=== PATIENT | female | born 1985 | race Caucasian/White ===

== ENCOUNTER 2019-11-18 05:55 | Inpatient (IN) ==
[2019-11-18] MEDS ORDERED: MEPERIDINE 25 MG/1 ML VIAL IV PRN (06:03)
[2019-11-18] MEDS ORDERED: ONDANSETRON 4 MG/2 ML VIAL IV PRN (06:03)
[2019-11-18] MEDS ORDERED: LACTATED RINGERS 250 ML IV ONE (06:03)
[2019-11-18] MEDS ORDERED: MEPERIDINE 50 MG/1 ML VIAL IV PRN (06:03)
[2019-11-18] MEDS ORDERED: LACTATED RINGERS 1,000 ML IV SCH (06:30)
[2019-11-18 06:31] LABS: Basophils % 0.4 % (0.0-0.8); Eosinophils # 0.1 10*3/uL (0.0-0.87); Eosinophils % 0.8 % (0.00-10.9); Hematocrit 33.3 VOL% (35.7-47.0); Hemoglobin 11.4 GM/DL (12.0-16.0); Immature Granulocytes % 1.1 %; Immature Granulocytes Absolute 0.11 #; Lymphocytes # 2.1 10*3/uL (1.4-4.0); Lymphocytes % 20.8 % (21.3-54.2); Mean Corpuscular HGB Conc 34.2 GM/DL (32-36); Mean Platelet Volume 9.7 FL (9.6-12.0); Monocytes % 8.7 % (1.7-12.7); Neutrophils % 68.2 % (38.7-73.9); Platelet Count 197 T/CUMM (130-400); Red Blood Count 3.62 MC/CUMM (3.8-5.5); Red Cell Distribution Width 14.5 % (9.3-17.3)
[2019-11-18 06:57] LABS: Albumin 2.9 G/DL (3.4-5.0); Bilirubin,Total 1.6 MG/DL (0.2-1.0); Osmolality,Calculated 269.8 MOS/KG (273-304); Total Protein 6.8 G/DL (6.4-8.3)
[2019-11-18] MEDS ORDERED: hydrOXYzine HCL 25 MG/1 ML VIAL IM PRN (07:28)
[2019-11-18] MEDS ORDERED: CITRIC ACID/SODIUM CITRATE 30 ML UDCUP PO ONE (07:28)
[2019-11-18] MEDS ORDERED: ONDANSETRON 4 MG/2 ML VIAL IV ONE (07:28)
[2019-11-18] MEDS ORDERED: LACTATED RINGERS 1,000 ML IV ONE (07:28)
[2019-11-18] MEDS ORDERED: ePHEDrine 50 MG/ML VIAL IV PRN (07:28)
[2019-11-18] MEDS ORDERED: NALOXONE 0.4 MG/ML VIAL IV PRN (07:28)
[2019-11-18] MEDS ORDERED: PROMETHAZINE 25 MG/1 ML VIAL IM ONE (07:28)
[2019-11-18] MEDS ORDERED: diphenhydrAMINE 50 MG/1 ML VIAL IV PRN ×2 (07:28)
[2019-11-18] MEDS ORDERED: FAMOTIDINE 20 MG/2 ML VIAL IV ONE (07:28)
[2019-11-18] MEDS: OXYTOCIN/LR 20 UNIT/1,000 ML BAG IV SCH ×2 (07:33→17:00)
[2019-11-18] MEDS: fentaNYL 2 MCG/ROPIV 0.2% EPID 100 ML EPIDURAL SCH ×3 (08:04→16:56)
[2019-11-18 12:39] LABS: Bacteria,Urine Occasional /HPF (Few); Bilirubin,Urine Negative (Negative); Blood, Urine Negative (Negative); Glucose,Urine (UA) Negative (Negative); Ketones,Urine Negative (Negative); Mucus,Urine Occasional /LPF (Occasional); Nitrite,Urine Negative (Negative); Protein,Urine Negative; Squamous Epithelial Cell,Urine Occasional /HPF (0-10); Urine Appearance CLEAR (Clear); Urine Color Yellow (Yellow); Urine Specific Gravity 1.009 (1.001-1.035); Urine Urobilinogen < 2.0 EU/DL (0.2-1.0); WBC,Urine <1 /HPF (0-6)
[2019-11-18] MEDS ORDERED: miSOPROStoL 200 MCG TABLET ONE (13:33)
[2019-11-18] MEDS ORDERED: LIDOCAINE 1% 50 ML VIAL ONE (13:33)
[2019-11-18] MEDS ORDERED: METHYLERGONOVINE 0.2 MG/1 ML AMP ONE (13:34)
[2019-11-18 14:55] LABS: Cord Arterial Blood HCO3 23.8 MMOL/L
[2019-11-18 14:58] LABS: Cord Venous Blood HCO3 22.8 MMOL/L; Cord Venous Blood PCO2 41.4 MMHG; Cord Venous Blood PO2 26.2 MMHG
[2019-11-18] MEDS: IBUPROFEN 800 MG TABLET PO PRN ×2 (17:01→23:16)
[2019-11-18] MEDS: DOCUSATE SODIUM 100 MG CAPSULE PO SCH (20:25)
[2019-11-18] MEDS: WITCH HAZEL PADS 100/JAR TOP PRN (20:25)
[2019-11-18] MEDS: HYDROCORTISONE 2.5% RECTAL CREAM 30 GM TUBE TOP PRN (20:25)
[2019-11-19] MEDS: oxyCODONE/ACETAMINOPHEN 5-325 MG TABLET PO PRN ×2 (03:46→22:50)
[2019-11-19 05:56] LABS: Basophils % 0.3 % (0.0-0.8); Eosinophils # 0.1 10*3/uL (0.0-0.87); Eosinophils % 0.6 % (0.00-10.9); Hematocrit 26.1 VOL% (35.7-47.0); Hemoglobin 8.8 GM/DL (12.0-16.0); Immature Granulocytes % 0.8 %; Immature Granulocytes Absolute 0.08 #; Lymphocytes # 1.7 10*3/uL (1.4-4.0); Lymphocytes % 15.8 % (21.3-54.2); Mean Corpuscular HGB Conc 33.7 GM/DL (32-36); Mean Corpuscular Volume 93.9 FL (87-102); Mean Platelet Volume 10.3 FL (9.6-12.0); Monocytes % 7.7 % (1.7-12.7); Neutrophils % 74.8 % (38.7-73.9); Platelet Count 158 T/CUMM (130-400); Red Blood Count 2.78 MC/CUMM (3.8-5.5); Red Cell Distribution Width 14.6 % (9.3-17.3); White Blood Count 10.5 T/CUMM (4-12)
[2019-11-19] MEDS: FERROUS SULFATE 325 MG TABLET PO SCH ×2 (07:48→21:06)
[2019-11-19] MEDS: DOCUSATE SODIUM 100 MG CAPSULE PO SCH ×2 (07:48→21:06)
[2019-11-19] MEDS: IBUPROFEN 800 MG TABLET PO PRN ×2 (10:00→15:47)
[2019-11-20] MEDS ORDERED: BENZOCAINE 20%/MENTHOL 0.5% SPRAY 56 GM CAN TOP PRN (08:27)
[2019-11-20 08:45] VITALS: BP 119/69
[2019-11-20] MEDS: DOCUSATE SODIUM 100 MG CAPSULE PO SCH (09:20)
[2019-11-20] MEDS: FERROUS SULFATE 325 MG TABLET PO SCH (09:21)
[2019-11-20] MEDS: WITCH HAZEL PADS 100/JAR TOP PRN (09:21)
[2019-11-20] MEDS: HYDROCORTISONE 2.5% RECTAL CREAM 30 GM TUBE TOP PRN (09:21)
[2019-11-20] MEDS: IBUPROFEN 800 MG TABLET PO PRN (09:45)
[2019-11-20] MEDS: oxyCODONE/ACETAMINOPHEN 5-325 MG TABLET PO PRN (09:45)
== END 2019-11-20 11:30 | disposition home or self-care (01) | DRG 806 ==
LOC: N.LDOUT 05:55 → N.LD 05:56 → N.OB 17:25
PROVIDERS: ADMIT Obstetrics & Gynecology; ATTEND Obstetrics & Gynecology